=== PATIENT | female | born 1950 | race Caucasian/White ===

== ENCOUNTER 2018-01-16 11:23 | Outpatient (CLI) | payer MEDICARE, OTHER | END 2018-01-16 11:24 | disposition home or self-care (01) | LOC: BICMAMMO 11:23 | PROVIDERS: ATTEND Family Medicine | DX: Z12.31 Encounter for screening mammogram for malignant neoplasm of breast (principal); Z80.3 Family history of malignant neoplasm of breast | CPT/HCPCS: 77063; 77067 ==

== ENCOUNTER 2018-02-05 11:37 | Inpatient (IN) | payer MEDICARE, OTHER ==
[~2018-02-05 11:37] MED LIST: Iopamidol-370 76% 500 ML 1 ML ONE
[2018-02-05] MEDS ORDERED: Fentanyl 100 MCG/2 ML VIAL ONE ×4 (11:44→21:04)
[2018-02-05 12:09] LABS: #Basophils 0.1 thou/uL (0.0-0.2); #Eosinphils 0.2 thou/uL (0.0-0.7); #Lymphocytes 2.1 thou/uL (1.20-3.40); #Monocytes 0.6 thou/uL (0.11-0.59); #Neutrophils 4.8 thou/uL (1.40-6.50); %Eosinophils 2.4 % (0.0-10.0); %Lymphocytes 27.1 % (21.0-51.0); %Monocytes 7.1 % (0.0-10.0); %Neutrophils 62.3 % (42.0-75.0); Hemoglobin 11.8 g/dL (12.0-16.0); Mean Corpuscular Hemoglobin 33.3 pg (27.0-31.0); Mean Platelet Volume 9.4 fL (7.4-10.4); Platelet Count 177 thou/uL (130-400); RBC Distribution Width 11.8 % (11.5-14.5); Red Blood Cell (RBC) Count 3.55 mill/uL (4.20-5.40); White Blood Cell (WBC) Count 7.7 thou/uL (4.8-10.8)
[2018-02-05 12:13] LABS: INR-International Normal Ratio 1.3; PTT 27.8 SEC (22.9-36.1); Prothrombin Time 15.9 SEC (12.0-14.7)
[2018-02-05 12:26] LABS: ALT (SGPT) 37 U/L (8-55); AST (SGOT) 46 U/L (5-34); Albumin 3.6 g/dL (3.4-4.8); Alcohol Less than 10 mg/dL (Less than 10); Alkaline Phosphatase 149 U/L (40-150); Anion Gap 11 mmol/L (10-20); BUN (Urea Nitrogen) 10 mg/dL (9.8-20.1); Bilirubin, Total 0.3 mg/dL (0.2-1.2); Calc. Creatinine Clearance 0 mL/min (70-130); Calcium 8.4 mg/dL (7.8-10.44); Carbon Dioxide 22 mmol/L (23-31); Chloride 109 mmol/L (98-107); Estimated GFR-MDRD 73; Globulin 2.6 g/dL (2.4-3.5); Glucose 111 mg/dL (80-115); Protein, Total 6.2 g/dL (6.0-8.3); Sodium 138 mmol/L (136-145)
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
[2018-02-05] MEDS ORDERED: Adacel (T-DAP) 0.5 ML SYRINGE ONE (12:59)
[2018-02-05] MEDS ORDERED: Morphine 4 MG/ML VIAL ONE ×3 (12:59→14:56)
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
[2018-02-05] MEDS ORDERED: CEFAZOLIN 1 GM VIAL ONE ×2 (13:41→20:01)
[2018-02-05] MEDS ORDERED: Sodium Chloride 0.9% 100 ML ONE (13:41)
[2018-02-05 14:13] LABS: Bilirubin Negative (Negative); Blood, Urine Negative (Negative); Clarity CLEAR (Clear); Glucose, Urine (Dipstick) Negative (Negative); Leukocyte Small (Negative); Nitrite Negative (Negative); Protein, Urine (Dipstick) Negative (Neg-Trace); Urobilinogen 0.2 mg/dL (0.2-1.0); pH, Urine 5.5 (5.0-9.0)
[2018-02-05 14:16] LABS: Bacteria/HPF None Seen HPF (None Seen); Hyaline Casts/LPF 4-6 HYALINE CAST LPF (0-3 Hyaline); Pathc Cast-AUWi Flag 0.58 (0-2.49); RBC/HPF 0-3 HPF (0-3); Squamous Epithelial 0-3 HPF (0-3); WBC/HPF 0-3 HPF (0-3)
[2018-02-05 14:26] LABS: Specific Gravity, Urine 1.045 (1.002-1.036)
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
[2018-02-05] MEDS ORDERED: Famotidine/PF 20 mg/2ml Vial ONE (17:00)
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
[2018-02-05] MEDS ORDERED: Ondansetron HCl/PF 4 MG/2 ML Vial IVP PRN (19:56)
[2018-02-05] MEDS ORDERED: PROPOFOL 200 MG/20 ML VIAL ONE (20:01)
[2018-02-05] MEDS ORDERED: PHENYLEPHRINE-NS 100 MCG/ML 10 ML SYRINGE ONE (20:01)
[2018-02-05] MEDS ORDERED: Dexamethasone 20 MG/5 ML VIAL ONE (20:01)
[2018-02-05] MEDS ORDERED: Succinylcholine Chloride 20 MG/ML 10 ml SYRINGE FS ONE (20:01)
[2018-02-05] MEDS ORDERED: Sterile Water 10 ML VIAL ONE (20:01)
[2018-02-05] MEDS ORDERED: Lidocaine 1% PF 5 ML VIAL ONE (20:01)
[2018-02-05] MEDS ORDERED: Ondansetron PF 4 MG/2 ML Vial ONE (20:01)
[2018-02-05] MEDS ORDERED: ePHEDrine/0.9% NaCl/PF SYRINGE 50 mg/10 ml ONE (20:01)
[2018-02-05] MEDS ORDERED: Glycopyrrolate 0.2 MG/ML 5 ML SYRINGE ONE (20:01)
[2018-02-05] MEDS ORDERED: Ondansetron ODT 4 MG TAB PO PRN (21:35)
[2018-02-05] MEDS ORDERED: Dextrose 50% Abboject 50 ML SYRINGE SLOW IVP PRN (21:35)
[2018-02-05] MEDS ORDERED: Morphine 4 MG/ML VIAL SLOW IVP PRN (21:35)
[2018-02-05] MEDS ORDERED: Dextrose 5% in Water 1,000 ML IV PRN (21:35)
[2018-02-05] MEDS ORDERED: Ondansetron PF 4 MG/2 ML Vial IVP PRN (21:35)
[2018-02-05] MEDS ORDERED: hydrALAZINE 20 MG/ML VIAL SLOW IVP PRN (21:35)
[2018-02-05] MEDS ORDERED: CEFAZOLIN/Water 2 GM/20 ML SYRINGE SLOW IVP SCH (22:00)
[2018-02-05] MEDS ORDERED: diphenhydrAMINE 25 MG CAP PO PRN (22:42)
[2018-02-05] MEDS: Morphine 4 MG/ML VIAL SLOW IVP PRN (22:55)
[2018-02-05] MEDS: Acetaminophen 1,000 MG in Premix Bag 1 BAG IVPB SCH (22:56)
[2018-02-05] MEDS: Ketorolac Tromethamine 30 MG/ML VIAL IVP SCH (22:56)
[2018-02-05] MEDS: CEFAZOLIN 2 GM/50 ML BAG IVPB SCH (22:56)
[2018-02-05] MEDS: Oxazepam 10 MG CAP PO SCH (22:56)
[2018-02-05] MEDS: Sodium Chloride 0.9% 1,000 ML IV SCH (22:58)
[2018-02-05 23:57] VITALS: BMI 31.0
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
[2018-02-06] MEDS ORDERED: Nitroglycerin 0.4 MG TAB (25 Tab Bottle) SL PRN (02:34)
[2018-02-06] MEDS: Morphine 4 MG/ML VIAL SLOW IVP PRN ×3 (02:59→08:21)
[2018-02-06] MEDS: Levothyroxine Sodium 100 MCG TAB PO SCH (06:03)
[2018-02-06] MEDS: Oxazepam 10 MG CAP PO SCH ×3 (06:04→21:25)
[2018-02-06] MEDS: Ketorolac Tromethamine 30 MG/ML VIAL IVP SCH (06:06)
[2018-02-06] MEDS: CEFAZOLIN 2 GM/50 ML BAG IVPB SCH ×2 (06:07→14:14)
[2018-02-06] MEDS: Sodium Chloride 0.9% 1,000 ML IV SCH (06:07)
[2018-02-06] MEDS: Acetaminophen 1,000 MG in Premix Bag 1 BAG IVPB SCH (06:43)
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
[2018-02-06 07:59] LABS: #Eosinphils 0.1 thou/uL (0.0-0.7); #Lymphocytes 1.3 thou/uL (1.20-3.40); #Monocytes 0.6 thou/uL (0.11-0.59); %Basophils 0.7 % (0.0-1.0); %Eosinophils 1.7 % (0.0-10.0); %Lymphocytes 25.9 % (21.0-51.0); %Monocytes 11.3 % (0.0-10.0); %Neutrophils 60.3 % (42.0-75.0); Hemoglobin 10.2 g/dL (12.0-16.0); Mean Corpuscular HGB CONC 31.8 g/dL (32.0-36.0); Mean Corpuscular Hemoglobin 32.6 pg (27.0-31.0); Mean Platelet Volume 9.4 fL (7.4-10.4); Platelet Count 124 thou/uL (130-400); RBC Distribution Width 11.8 % (11.5-14.5); Red Blood Cell (RBC) Count 3.14 mill/uL (4.20-5.40); White Blood Cell (WBC) Count 4.9 thou/uL (4.8-10.8)
[2018-02-06] MEDS: Venlafaxine HCl XR 150 MG CAP PO SCH (08:22)
[2018-02-06] MEDS: Bupropion 150 MG XL TAB PO SCH (08:22)
[2018-02-06] MEDS: Cyanocobalamin (Vitamin B-12) 1,000 MCG TAB PO SCH (08:22)
[2018-02-06] MEDS: Folic Acid 1 MG TAB PO SCH (08:23)
[2018-02-06] MEDS: Famotidine 20 MG TAB PO SCH ×2 (08:23→20:24)
[2018-02-06] MEDS: Multivitamin W/ Minerals 1 TAB PO SCH (08:23)
[2018-02-06] MEDS ORDERED: HYDROcodone/Acetaminophen 5/325 mg Tablet PO PRN (08:34)
--- NOTE | 2018-02-06 08:42 | RAD ---
RIGHT KNEE TWO VIEWS: History: Patellar fracture. FINDINGS/IMPRESSION: Two spot fluoroscopic intraoperative images of the right knee demonstrate interval reduction and fixa tion of the distracted patellar fracture noted on the earlier exam of same date. POS: [facility]
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
[2018-02-06 08:56] LABS: Anion Gap 8 mmol/L (10-20); BUN (Urea Nitrogen) 8 mg/dL (9.8-20.1); Calc. Creatinine Clearance 98 mL/min (70-130); Calcium 7.8 mg/dL (7.8-10.44); Carbon Dioxide 28 mmol/L (23-31); Chloride 106 mmol/L (98-107); Estimated GFR-MDRD 73; Glucose 129 mg/dL (80-115); Potassium 4.2 mmol/L (3.5-5.1); Sodium 138 mmol/L (136-145)
[2018-02-06] MEDS ORDERED: MEMANTINE PO SCH (09:00)
[2018-02-06] MEDS ORDERED: DONEPEZIL PO SCH (09:00)
[2018-02-06] MEDS ORDERED: Aspirin 325 mg Enteric Coated Tablet PO SCH (09:00)
[2018-02-06] MEDS ORDERED: Folic Acid 1 MG TAB PO SCH (09:00)
[2018-02-06] MEDS ORDERED: Enoxaparin Sodium 40 MG/0.4 ML SYRINGE SC SCH (09:00)
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
[2018-02-06] MEDS: Primidone 50 MG TAB PO SCH (09:32)
[2018-02-06] MEDS: Liothyronine Sodium 25 MCG TAB PO SCH (09:32)
[2018-02-06] MEDS: Acetaminophen 325 MG TAB PO SCH ×3 (11:53→23:46)
[2018-02-06] MEDS ORDERED: traMADol HCl 50 MG TAB PO PRN (12:01)
[2018-02-06] MEDS: traMADol HCl 50 MG TAB PO PRN ×2 (12:26→18:13)
[2018-02-06] MEDS: Ibuprofen 600 MG TAB PO SCH ×2 (14:14→21:25)
[2018-02-06] MEDS: Pancrelipase DR 12000 1 CAP PO SCH ×2 (14:15→18:13)
[2018-02-06] MEDS: Morphine 2 MG/ML SYRINGE SLOW IVP PRN ×2 (15:07→20:18)
[2018-02-06] MEDS: Apixaban 5 MG TAB PO SCH (20:24)
[2018-02-06] MEDS: Donepezil HCl 5 MG TAB PO SCH (20:24)
[2018-02-07] MEDS: traMADol HCl 50 MG TAB PO PRN ×3 (01:50→15:50)
[2018-02-07] MEDS: Acetaminophen 325 MG TAB PO SCH ×4 (05:04→23:44)
[2018-02-07] MEDS: Ibuprofen 600 MG TAB PO SCH ×3 (05:04→21:11)
[2018-02-07] MEDS: Liothyronine Sodium 25 MCG TAB PO SCH (05:05)
[2018-02-07] MEDS: Oxazepam 10 MG CAP PO SCH ×2 (05:05→21:11)
[2018-02-07] MEDS: Levothyroxine Sodium 100 MCG TAB PO SCH (05:06)
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
[2018-02-07] MEDS ORDERED: Magnesium Citrate 300 ML BOT PO SCH (08:45)
[2018-02-07] MEDS: Apixaban 5 MG TAB PO SCH ×2 (09:08→21:11)
[2018-02-07] MEDS: Cyanocobalamin (Vitamin B-12) 1,000 MCG TAB PO SCH (09:08)
[2018-02-07] MEDS: Bupropion 150 MG XL TAB PO SCH (09:08)
[2018-02-07] MEDS: Pancrelipase DR 12000 1 CAP PO SCH ×3 (09:08→17:39)
[2018-02-07] MEDS: Multivitamin W/ Minerals 1 TAB PO SCH (09:08)
[2018-02-07] MEDS: Venlafaxine HCl XR 150 MG CAP PO SCH (09:09)
[2018-02-07] MEDS: Donepezil HCl 5 MG TAB PO SCH ×2 (09:09→21:11)
[2018-02-07] MEDS: Folic Acid 1 MG TAB PO SCH (09:09)
[2018-02-07] MEDS: Famotidine 20 MG TAB PO SCH ×2 (09:09→21:11)
[2018-02-07] MEDS: Senokot 8.6 MG TAB PO SCH (09:11)
[2018-02-07] MEDS: Primidone 50 MG TAB PO SCH (11:47)
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
[2018-02-07] MEDS: Morphine 4 MG/ML VIAL SLOW IVP PRN ×2 (12:56→21:12)
--- NOTE | 2018-02-07 12:59 | PDOC.EVN ---
Event Note - Event Note Event Note: Updated family at bedside. States grossly non compliant. Daughter RN wants to have pacer interrogated, states is usually pacer dependent and now EKG shows sinus. No cp, BP stable, no sob. CT head awaiting formal read, but negative for acute blood on my read EKG with low voltage, sinus arrhythmia but no stemi noted Updated RN Plan is rehab hope for tomorrow Only up to side of bed with PT, needs to get up further and mobilize Encouraged IS again. Have paged [employer] [phone]
--- NOTE | 2018-02-07 17:58 | EKG ---
Test Reason : Blood Pressure : / mmHG Vent. Rate : 075 BPM Atrial Rate : 075 BPM P-R Int : 140 ms QRS Dur : 084 ms QT Int : 382 ms P-R-T Axes : 091 057 062 degrees QTc Int : 426 ms Normal sinus rhythm with sinus arrhythmia Nonspecific T wave abnormality Abnormal ECG When compared with ECG of 05-FEB-2018 13:47, No significant change was found Confirmed by MADIE REAVES ([id number]) on 02/07/2018 5:58:40 PM Referred By: TRACEY Confirmed By:MADIE REAVES
[2018-02-08] MEDS: traMADol HCl 50 MG TAB PO PRN ×2 (05:13→14:21)
[2018-02-08] MEDS: Acetaminophen 325 MG TAB PO SCH ×2 (05:14→12:01)
[2018-02-08] MEDS: Ibuprofen 600 MG TAB PO SCH ×2 (05:15→14:20)
[2018-02-08] MEDS: Levothyroxine Sodium 100 MCG TAB PO SCH (05:16)
[2018-02-08] MEDS: Liothyronine Sodium 25 MCG TAB PO SCH (05:16)
[2018-02-08] MEDS: Venlafaxine HCl XR 150 MG CAP PO SCH (08:47)
[2018-02-08] MEDS: Pancrelipase DR 12000 1 CAP PO SCH ×2 (08:47→11:57)
[2018-02-08] MEDS: Bupropion 150 MG XL TAB PO SCH (08:47)
[2018-02-08] MEDS: Donepezil HCl 5 MG TAB PO SCH (08:48)
[2018-02-08] MEDS: Folic Acid 1 MG TAB PO SCH (08:48)
[2018-02-08] MEDS: Multivitamin W/ Minerals 1 TAB PO SCH (08:48)
[2018-02-08] MEDS: Cyanocobalamin (Vitamin B-12) 1,000 MCG TAB PO SCH (08:48)
[2018-02-08] MEDS: Apixaban 5 MG TAB PO SCH (08:50)
[2018-02-08] MEDS: Famotidine 20 MG TAB PO SCH (08:50)
[2018-02-08] MEDS: Oxazepam 10 MG CAP PO SCH (08:51)
[2018-02-08] MEDS: Senokot 8.6 MG TAB PO SCH (08:52)
[2018-02-08] MEDS: Primidone 50 MG TAB PO SCH (11:58)
[2018-02-08 12:07] VITALS: BP 131/65; TEMP 98.8
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
== END 2018-02-08 15:06 | DRG 510 ==
LOC: ERS 11:37 → SDC 15:41 → SURG A 20:54 → OBSVTOIN 21:35
PROVIDERS: ADMIT Orthopaedic Surgery; ATTEND Orthopaedic Surgery
PROC: 0PSL04Z Reposition Left Ulna with Internal Fixation Device, Open Approach (ICD-10-PCS; principal; 2018-02-05)
PROC: 0QSD04Z Reposition Right Patella with Internal Fixation Device, Open Approach (ICD-10-PCS; 2018-02-05)
DX: S32.018A Other fracture of first lumbar vertebra, initial encounter for closed fracture (principal); S52.022B Displaced fracture of olecranon process without intraarticular extension of left ulna, initial encounter for open fracture type I or II; S12.600A Unspecified displaced fracture of seventh cervical vertebra, initial encounter for closed fracture; S82.001B Unspecified fracture of right patella, initial encounter for open fracture type I or II; V49.59XA Passenger injured in collision with other motor vehicles in traffic accident, initial encounter; Z88.5 Allergy status to narcotic agent; Z91.040 Latex allergy status; Z86.718 Personal history of other venous thrombosis and embolism; M06.9 Rheumatoid arthritis, unspecified; G20 Parkinson's disease; I25.10 Atherosclerotic heart disease of native coronary artery without angina pectoris; I25.2 Old myocardial infarction; E03.9 Hypothyroidism, unspecified; E78.5 Hyperlipidemia, unspecified; I10 Essential (primary) hypertension; F32.9 Major depressive disorder, single episode, unspecified; F41.9 Anxiety disorder, unspecified; Z95.0 Presence of cardiac pacemaker; Z95.1 Presence of aortocoronary bypass graft; S06.0X0A Concussion without loss of consciousness, initial encounter; V49.40XA Driver injured in collision with unspecified motor vehicles in traffic accident, initial encounter; Z95.5 Presence of coronary angioplasty implant and graft; Z98.84 Bariatric surgery status
CPT/HCPCS: 36415; 36416; 51702; 70450; 71045; 71260; 72125; 72170; 74177; 76001; 80048; 80053; 80307; 81003; 81015; 82150; 83605; 85025; 85730; 90471; 90715; 93005; 93010; 96365; 96375; 96376; A4216; C1713; C1769; G0390; G8978-GP-CM; G8979-GP-CK; G8987-GO-CN; G8988-GO-CK; J0131; J0690; J1100; J1650; J1885; J2001; J2270; J2405; J2704; J3010; J7050; Q9967; S0028

== ENCOUNTER 2018-02-14 15:08 | Outpatient (CLI) | payer MEDICARE, OTHER ==
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
== END 2018-02-14 15:09 | disposition home or self-care (01) ==
LOC: RAD 15:08
PROVIDERS: ATTEND Internal Medicine
DX: S29.9XXA Unspecified injury of thorax, initial encounter (principal)
CPT/HCPCS: 71120

== ENCOUNTER 2018-03-17 20:14 | Emergency (ER) | payer MEDICARE, OTHER ==
[2018-03-17 21:28] LABS: #Basophils 0.1 thou/uL (0.0-0.2); #Eosinphils 0.3 thou/uL (0.0-0.7); #Lymphocytes 1.5 thou/uL (1.20-3.40); #Monocytes 0.7 thou/uL (0.11-0.59); #Neutrophils 3.1 thou/uL (1.40-6.50); %Eosinophils 4.6 % (0.0-10.0); %Lymphocytes 26.6 % (21.0-51.0); %Monocytes 12.3 % (0.0-10.0); %Neutrophils 55.5 % (42.0-75.0); Hemoglobin 11.7 g/dL (12.0-16.0); Mean Corpuscular HGB CONC 32.2 g/dL (32.0-36.0); Mean Corpuscular Hemoglobin 32.7 pg (27.0-31.0); Mean Platelet Volume 8.5 fL (7.4-10.4); Platelet Count 214 thou/uL (130-400); RBC Distribution Width 11.3 % (11.5-14.5); Red Blood Cell (RBC) Count 3.58 mill/uL (4.20-5.40); White Blood Cell (WBC) Count 5.6 thou/uL (4.8-10.8)
[2018-03-17 21:42] LABS: ALT (SGPT) 37 U/L (8-55); AST (SGOT) 38 U/L (5-34); Albumin 3.7 g/dL (3.4-4.8); Alkaline Phosphatase 215 U/L (40-150); Anion Gap 12 mmol/L (10-20); BUN (Urea Nitrogen) 14 mg/dL (9.8-20.1); Bilirubin, Total 0.2 mg/dL (0.2-1.2); Calc. Creatinine Clearance 0 mL/min (70-130); Calcium 9.1 mg/dL (7.8-10.44); Carbon Dioxide 24 mmol/L (23-31); Chloride 103 mmol/L (98-107); Estimated GFR-MDRD 71; Globulin 3.4 g/dL (2.4-3.5); Glucose 60 mg/dL (80-115); Potassium 3.8 mmol/L (3.5-5.1); Protein, Total 7.1 g/dL (6.0-8.3); Sodium 135 mmol/L (136-145)
--- NOTE | 2018-03-17 22:06 | RAD ---
LEFT ELBOW TWO VIEWS: 03/17/18 HISTORY: Left elbow pain. FINDINGS: Internal fixation of the proximal ulna and olecranon. Healing fracture of the proximal ulnar shaft. R adiocapitellar alignment maintained. No fluid distention of the joint capsule. Mild osteophytosis. IMPRESSION: Internal fixation of the left proximal ulna with healing fracture apparent. No acute osseous abnormal ities are demonstrated. POS: [facility]
--- NOTE | 2018-03-17 23:32 | ULT ---
VENOUS DUPLEX SONOGRAM LEFT UPPER EXTREMITY: 03/17/18 HISTORY: Left arm pain and edema. FINDINGS: The visualized portions of the left subclavian vein and the axillary, brachial, cephalic, and basilic veins show good color and spectral doppler flow and compression. Internal jugular vein was unable t o be evaluated due to the neck brace. IMPRESSION: No sonographic evidence of DVT within the left upper extremity. POS: [facility]
== END 2018-03-18 00:34 ==
LOC: ERS 20:14
DX: M79.89 Other specified soft tissue disorders (principal); Z86.718 Personal history of other venous thrombosis and embolism; I25.10 Atherosclerotic heart disease of native coronary artery without angina pectoris; I25.2 Old myocardial infarction; E03.9 Hypothyroidism, unspecified; E78.5 Hyperlipidemia, unspecified; I10 Essential (primary) hypertension; G20 Parkinson's disease; F41.9 Anxiety disorder, unspecified; F32.9 Major depressive disorder, single episode, unspecified; Z79.899 Other long term (current) drug therapy; Z79.01 Long term (current) use of anticoagulants
CPT/HCPCS: 36415; 80053; 85025; 87040; 94760

== ENCOUNTER 2018-03-22 09:32 | Day surgery (SDC) | payer MEDICARE, OTHER ==
[2018-03-22] MEDS ORDERED: CEFAZOLIN 2 GM/50 ML BAG ONE (12:18)
[2018-03-22 12:35] LABS: INR-International Normal Ratio 1.4; PTT 32.3 SEC (22.9-36.1); Prothrombin Time 17.3 SEC (12.0-14.7)
[2018-03-22] MEDS ORDERED: Fentanyl 100 MCG/2 ML VIAL ONE ×3 (13:25→15:49)
[2018-03-22] MEDS ORDERED: Bupivacaine HCl 0.5%/Epinephrine 1:200,000/PF 30 ml Vial ONE (15:04)
[2018-03-22] MEDS ORDERED: Ondansetron PF 4 MG/2 ML Vial ONE (16:55)
[2018-03-22] MEDS ORDERED: PROPOFOL 200 MG/20 ML VIAL ONE (16:55)
[2018-03-22] MEDS ORDERED: Lidocaine 1% PF 5 ML VIAL ONE (16:55)
--- NOTE | 2018-03-22 17:10 | EKG ---
Test Reason : PREOP Blood Pressure : / mmHG Vent. Rate : 068 BPM Atrial Rate : 068 BPM P-R Int : 160 ms QRS Dur : 082 ms QT Int : 442 ms P-R-T Axes : 079 046 045 degrees QTc Int : 469 ms Sinus rhythm with Premature atrial complexes Otherwise normal ECG When compared with ECG of 07-FEB-2018 10:44, Premature atrial complexes are now Present Confirmed by VERÓNICA GARCIA, SDahlia ([id number]) on 03/22/2018 5:10:14 PM Referred By: JUVENTINO Confirmed By:DR. Rose SANCHES MD
[2018-03-22] MEDS ORDERED: HYDROcodone/Acetaminophen 5/325 mg Tablet ONE (18:01)
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
--- NOTE | 2018-03-23 08:20 | RAD ---
RIGHT KNEE 3 VIEWS: INDICATION: Intraoperative imaging in OR during hardware removal procedure. FINDINGS: These 3 views show screws and wires transfixing the patella. POS: OFF
== END 2018-03-22 20:30 | disposition home or self-care (01) ==
LOC: SDC 09:32
PROVIDERS: ATTEND Orthopaedic Surgery
PROC: 0QSD04Z Reposition Right Patella with Internal Fixation Device, Open Approach (ICD-10-PCS; principal; 2018-03-22)
DX: S82.001K Unspecified fracture of right patella, subsequent encounter for closed fracture with nonunion (principal); S52.232D Displaced oblique fracture of shaft of left ulna, subsequent encounter for closed fracture with routine healing; F32.9 Major depressive disorder, single episode, unspecified; F41.9 Anxiety disorder, unspecified; I10 Essential (primary) hypertension; I25.10 Atherosclerotic heart disease of native coronary artery without angina pectoris; E03.9 Hypothyroidism, unspecified; E78.5 Hyperlipidemia, unspecified; I25.2 Old myocardial infarction; Z79.01 Long term (current) use of anticoagulants; Z79.899 Other long term (current) drug therapy; Z88.8 Allergy status to other drugs, medicaments and biological substances; Z91.040 Latex allergy status; Z98.890 Other specified postprocedural states; V89.2XXD Person injured in unspecified motor-vehicle accident, traffic, subsequent encounter
CPT/HCPCS: 27524; 73564; 76000; 85610; 85730; 87070; 87075; 87205; 93005; C1713; C1769; 93010; J0670; J2001; J2405; J2704; J3010

== ENCOUNTER 2018-04-02 15:05 | Emergency (ER) | payer MEDICARE, OTHER ==
[2018-04-02] MEDS ORDERED: Cyclobenzaprine 10 MG TAB ONE (18:03)
[2018-04-02] MEDS ORDERED: Ketorolac Tromethamine 30 MG/ML VIAL ONE (18:03)
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
== END 2018-04-02 19:07 | disposition home or self-care (01) ==
LOC: ERS 15:05
DX: S16.1XXA Strain of muscle, fascia and tendon at neck level, initial encounter (principal); Z86.718 Personal history of other venous thrombosis and embolism; I25.10 Atherosclerotic heart disease of native coronary artery without angina pectoris; I25.2 Old myocardial infarction; E03.9 Hypothyroidism, unspecified; E78.5 Hyperlipidemia, unspecified; G20 Parkinson's disease; F41.9 Anxiety disorder, unspecified; F32.9 Major depressive disorder, single episode, unspecified; W22.8XXA Striking against or struck by other objects, initial encounter
CPT/HCPCS: 72125; 96372; J1885

== ENCOUNTER 2018-04-17 14:11 | Outpatient (CLI) | payer MEDICARE, OTHER ==
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
== END 2018-04-17 14:12 | disposition home or self-care (01) ==
LOC: TBSIIMAG 14:11
PROVIDERS: ATTEND Neurological Surgery
DX: S12.600D Unspecified displaced fracture of seventh cervical vertebra, subsequent encounter for fracture with routine healing (principal); M47.812 Spondylosis without myelopathy or radiculopathy, cervical region
CPT/HCPCS: 72040

== ENCOUNTER 2018-05-22 10:38 | Day surgery (SDC) | payer MEDICARE, OTHER ==
[2018-05-21 16:59] VITALS: BMI 29.7
[2018-05-22 11:30] LABS: Hemoglobin 12.7 g/dL (12.0-16.0); Mean Corpuscular HGB CONC 33.3 g/dL (32.0-36.0); Mean Corpuscular Hemoglobin 31.4 pg (27.0-31.0); Mean Corpuscular Volume 94.1 fL (78.0-98.0); Mean Platelet Volume 8.9 fL (7.4-10.4); Platelet Count 170 thou/uL (130-400); RBC Distribution Width 12.1 % (11.5-14.5); Red Blood Cell (RBC) Count 4.04 mill/uL (4.20-5.40); White Blood Cell (WBC) Count 5.2 thou/uL (4.8-10.8)
[2018-05-22 11:47] LABS: Eosinophils 4 % (0-10); Lymphocytes 32 % (21-51); MDiff Complete? YES; Monocytes 9 % (0-10); Neutrophil 53 % (42-75); Platelet Morphology Comment Appears Adequate; RBC Morphology Normal; Reactive Lymphocytes 2 % (0-10)
[2018-05-22 11:50] LABS: Anion Gap 10 mmol/L (10-20); BUN (Urea Nitrogen) 13 mg/dL (9.8-20.1); Calc. Creatinine Clearance 103 mL/min (70-130); Calcium 9.3 mg/dL (7.8-10.44); Carbon Dioxide 26 mmol/L (23-31); Chloride 107 mmol/L (98-107); Estimated GFR-MDRD 82; Glucose 82 mg/dL (80-115); Potassium 3.8 mmol/L (3.5-5.1); Sodium 139 mmol/L (136-145)
[2018-05-22] MEDS ORDERED: Bupivacaine HCl 0.5%/Epinephrine 1:200,000/PF 30 ml Vial ONE (12:09)
[2018-05-22] MEDS ORDERED: Midazolam HCl 2 mg/2 ml Vial ONE (12:11)
[2018-05-22] MEDS ORDERED: Fentanyl 100 MCG/2 ML VIAL ONE (12:11)
--- NOTE | 2018-05-22 21:23 | EKG ---
Test Reason : PREOP Blood Pressure : / mmHG Vent. Rate : 085 BPM Atrial Rate : 085 BPM P-R Int : 160 ms QRS Dur : 082 ms QT Int : 396 ms P-R-T Axes : 065 050 058 degrees QTc Int : 471 ms [employer] Electronic atrial pacemaker Confirmed by VERÓNICA GARCIA, DR. Rose ([id number]) on 05/22/2018 9:23:24 PM Referred By: JUNIOR Confirmed By:DR. Rose SANCHES MD
--- NOTE | 2018-05-23 00:56 | OP ---
DATE OF PROCEDURE: 05/22/2018 PREOPERATIVE DIAGNOSIS: Painful hardware, upper sternum. POSTOPERATIVE DIAGNOSIS: Painful hardware, upper sternum. PROCEDURE PERFORMED: Partial removal of sternal wire. ANESTHESIA: 0.5% Marcaine with epinephrine plus IV sedation. DESCRIPTION OF PROCEDURE: After prepping and draping and sedation had been obtained, Marcaine was infiltrated into the upper sternal incision including on top of the sternum. Incision was made and carried down to the exposed wire. The wire was pointed directly upwards with untwisted and then the wires individually were amputated against the sternum, leaving no exposed wire. Wound was closed in layers. The patient tolerated the procedure. Job ID: [id number]
== END 2018-05-22 14:00 | disposition home or self-care (01) ==
LOC: SDC 10:38
PROVIDERS: ATTEND Thoracic Surgery (Cardiothoracic Vascular Surgery)
PROC: 0PC00ZZ Extirpation of Matter from Sternum, Open Approach (ICD-10-PCS; principal; 2018-05-22)
DX: T84.84XA Pain due to internal orthopedic prosthetic devices, implants and grafts, initial encounter (principal); E03.9 Hypothyroidism, unspecified; K21.9 Gastro-esophageal reflux disease without esophagitis; D64.9 Anemia, unspecified; M47.9 Spondylosis, unspecified; I25.10 Atherosclerotic heart disease of native coronary artery without angina pectoris; I48.0 Paroxysmal atrial fibrillation; Z88.8 Allergy status to other drugs, medicaments and biological substances; Z91.048 Other nonmedicinal substance allergy status
CPT/HCPCS: 80048; 85007; 85027; 93005; 93010; J0670; J2250; J3010

== ENCOUNTER 2018-09-12 11:51 | Outpatient (CLI) | payer MEDICARE, OTHER ==
[2018-09-12 13:26] LABS: #Basophils 0.1 thou/uL (0.0-0.2); #Eosinphils 0.2 thou/uL (0.0-0.7); #Monocytes 0.6 thou/uL (0.11-0.59); #Neutrophils 2.8 thou/uL (1.40-6.50); %Basophils 1.3 % (0.0-1.0); %Eosinophils 3.5 % (0.0-10.0); %Lymphocytes 35.3 % (21.0-51.0); %Monocytes 10.7 % (0.0-10.0); %Neutrophils 49.2 % (42.0-75.0); Hemoglobin 12.8 g/dL (12.0-16.0); Mean Corpuscular HGB CONC 33.4 g/dL (32.0-36.0); Mean Corpuscular Hemoglobin 33.9 pg (27.0-31.0); Mean Platelet Volume 8.9 fL (7.4-10.4); Platelet Count 159 thou/uL (130-400); RBC Distribution Width 12.6 % (11.5-14.5); Red Blood Cell (RBC) Count 3.79 mill/uL (4.20-5.40); White Blood Cell (WBC) Count 5.6 thou/uL (4.8-10.8)
[2018-09-12 13:33] LABS: Bilirubin Negative (Negative); Blood, Urine Negative (Negative); Clarity Clear (Clear); Glucose, Urine (Dipstick) Normal (Negative); Leukocyte Negative Leu/uL (Negative); Nitrite Negative (Negative); Protein, Urine (Dipstick) Negative (Neg-Trace); RBC/HPF 0-3 HPF (0-3); Squamous Epithelial 0-3 HPF (0-3); Urobilinogen Normal mg/dL (Less than 2); WBC/HPF 0-3 HPF (0-3)
[2018-09-12 13:43] LABS: Bacteria/HPF None Seen HPF (None Seen)
== END 2018-09-12 11:52 | disposition home or self-care (01) ==
LOC: LABBT 11:51
PROVIDERS: ATTEND Orthopaedic Surgery Hand Surgery
DX: Z01.818 Encounter for other preprocedural examination (principal); G56.22 Lesion of ulnar nerve, left upper limb
CPT/HCPCS: 81001; 85025; 93005; 93010

== ENCOUNTER 2018-09-18 08:56 | Observation (INO) | payer MEDICARE, OTHER ==
[2018-09-12 12:33] VITALS: BMI 29.7
[2018-09-18] MEDS ORDERED: ceFAZolin Sodium (SDC) 2 GM/100 ML BAG ONE (14:53)
[2018-09-18] MEDS ORDERED: Midazolam HCl 2 mg/2 ml Vial ONE (14:53)
[2018-09-18] MEDS ORDERED: Betamet Acet/Betamet Na Ph 30 MG/5 ML VIAL ONE (15:24)
[2018-09-18] MEDS ORDERED: Bupivacaine PF 0.5% 30 ML VIAL ONE (15:24)
[2018-09-18] MEDS ORDERED: Bacitracin Zinc Ointment 30 gm TUBE ONE (15:25)
[2018-09-18] MEDS ORDERED: Metoprolol Tartrate 5 MG/5 ML VIAL ONE (15:38)
[2018-09-18] MEDS ORDERED: Ondansetron PF 4 MG/2 ML Vial ONE (15:38)
[2018-09-18] MEDS ORDERED: Lidocaine 1% PF 5 ML VIAL ONE (15:38)
[2018-09-18] MEDS ORDERED: PROPOFOL 200 MG/20 ML VIAL ONE (15:38)
[2018-09-18] MEDS ORDERED: Fentanyl 100 MCG/2 ML VIAL ONE ×2 (15:39→18:23)
[2018-09-18] MEDS ORDERED: Ketorolac Tromethamine 30 MG/ML VIAL ONE (18:23)
[2018-09-18] MEDS ORDERED: Ondansetron PF 4 MG/2 ML Vial IV PRN (18:30)
[2018-09-18] MEDS ORDERED: Acetaminophen 325 MG TAB PO PRN (18:30)
[2018-09-18] MEDS ORDERED: Morphine 2 MG/ML SYRINGE IVP PRN (18:30)
[2018-09-18] MEDS ORDERED: Promethazine HCl 25 MG/ML VIAL IM PRN (18:30)
[2018-09-18] MEDS ORDERED: traMADol HCl 50 MG TAB PO PRN (18:30)
[2018-09-18] MEDS ORDERED: HYDROcodone/Acetaminophen 5/325 mg Tablet PO PRN (18:30)
[2018-09-18] MEDS ORDERED: Communication Order-Pharmacy FS SCH (18:30)
[2018-09-18] MEDS ORDERED: Non-Formulary Medication 1 EACH PO PRN (18:42)
[2018-09-18] MEDS ORDERED: Promethazine HCl 25 MG/ML VIAL IM/IV PRN (18:42)
[2018-09-18] MEDS ORDERED: Ondansetron HCl/PF 4 MG/2 ML Vial IVP PRN (18:42)
[2018-09-18] MEDS ORDERED: Nitroglycerin 0.4 MG TAB (25 Tab Bottle) SL PRN (20:35)
[2018-09-18] MEDS ORDERED: Propranolol HCl LA 60 MG CAP PO SCH (21:00)
[2018-09-18] MEDS ORDERED: VANCOMYCIN HCL IVPB SCH (21:00)
[2018-09-18] MEDS ORDERED: lamoTRIgine 100 MG TAB PO SCH (21:00)
[2018-09-18] MEDS: Donepezil HCl 5 MG TAB PO SCH (21:14)
[2018-09-18] MEDS: Aspirin 81 mg Enteric Coated Tablet PO SCH (21:15)
[2018-09-18] MEDS: Vancomycin HCl 1.25 GM in Sodium Chloride 0.9% 250 ML 250 ML IVPB SCH (21:17)
[2018-09-18] MEDS: Acetaminophen/Codeine 30-300mg Tablet PO PRN (21:25)
[2018-09-18] MEDS ORDERED: TETANUS AND DIPHTHERIA TOX/PF 0.5 ML DISP.SYRIN IM SCH (23:00)
[2018-09-18] MEDS: Ketorolac Tromethamine 30 MG/ML VIAL IVP SCH (23:28)
[2018-09-19] MEDS: Ketorolac Tromethamine 30 MG/ML VIAL IVP SCH (05:16)
[2018-09-19] MEDS ORDERED: Levothyroxine Sodium 100 MCG TAB PO SCH (06:00)
[2018-09-19] MEDS ORDERED: Pancrelipase DR 12000 1 CAP PO SCH (08:00)
[2018-09-19] MEDS: Donepezil HCl 5 MG TAB PO SCH (08:25)
[2018-09-19] MEDS: Aspirin 81 mg Enteric Coated Tablet PO SCH (08:27)
[2018-09-19] MEDS: Acetaminophen/Codeine 30-300mg Tablet PO PRN (08:28)
[2018-09-19] MEDS ORDERED: Primidone 50 MG TAB PO SCH ×2 (09:00)
[2018-09-19] MEDS ORDERED: Cyanocobalamin (Vitamin B-12) 1,000 MCG TAB PO SCH (09:00)
[2018-09-19] MEDS ORDERED: Multivitamin W/ Minerals 1 TAB PO SCH (09:00)
[2018-09-19] MEDS ORDERED: Thiamine 100 MG TAB PO SCH (09:00)
[2018-09-19] MEDS ORDERED: Venlafaxine HCl XR 150 MG CAP PO SCH (09:00)
[2018-09-19] MEDS ORDERED: Liothyronine Sodium 25 MCG TAB PO SCH (09:00)
[2018-09-19] MEDS ORDERED: Bupropion 150 MG XL TAB PO SCH (09:00)
[2018-09-19] MEDS: Vancomycin HCl 1.25 GM in Sodium Chloride 0.9% 250 ML 250 ML IVPB SCH (09:17)
[2018-09-19 10:54] VITALS: BP 145/74; TEMP 99
--- NOTE | 2018-09-19 12:39 | OP ---
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 POSTOPERATIVE DIAGNOSES: 1. 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 2. Olecranon bursitis. PROCEDURES PERFORMED: 1. Radical olecranon bursectomy. 2. Ulnar nerve transposition, submuscular, with ulnar nerve neuroplasty at the elbow region, centered on the elbow. FINDINGS: She had two areas of extreme fascial soft tissue constriction, one at the inlet to the cubital tunnel and the other approximately 3 cm proximal where the intermuscular septum crossed over extremely tight. ESTIMATED BLOOD LOSS: 10 mL. TOURNIQUET TIME: 83 minutes. INJECTABLE: Yes, 30 mL of 0.5% Marcaine with 20 given before the procedure on the incision and 10 given afterwards. DESCRIPTION OF PROCEDURE: After successful general endotracheal anesthesia, the limb was prepped and draped. Time-out done appropriately. Sterile tourniquet was applied high in the arm and the patient then underwent exsanguination of the limb. Her previous incision was utilized in the distal two-thirds of the incision and proximal one-third, was also midline, slightly medialized at the proximal aspect. We then carried the incision through skin and subcutaneous tissue. We noticed very thick olecranon bursa. We then began proximally identifying the ulnar nerve and at the point where it overly the intermuscular septum, a portion was coursed almost 34 degrees ulnar/medially shifted. We released this with neuroplasty. We then followed with neuroplasty from here until we reached the end to the primary cubital tunnel and here also, the ulnar nerve was flat to the point where it was almost 50% diameter decrease. We performed release of the cubital tunnel primary ligament, the fascia over the flexor pronator origin identifying the nerve branch of flexor carpi radialis and ulnaris and sparing them. We carried this at least 8 cm distal to the elbow. The ulnar nerve was free further without any compression. Reconstitution of the nerve by the time we finished the procedure was in progress. We now made sure the nerve was free from proximal to distal, so it could be transposed and we did this with bone dissection. We used DeBakey forceps for contact with the perineural fascial elements. We then realized that this intermuscular septum was one of the large components of compression, that the intermuscular septum must be resected, so a nearly 8 mm wide band of the intermuscular septum was released and removed beginning at the medial epicondyle and coursing 2 cm proximal to where the compression had been over the ulnar nerve. At this point, we made a Z incision in the flexor pronator origin, sparing the collateral, making sure there was no muscular tension and then placed the ulnar nerve gently underneath this bringing with it a vascular bundle. Then, we placed Celestone over the nerve elements within the canal including the two spots that had the compression, and we repaired the lengthened flexor pronator group in a Z-plasty relaxing fashion using an interrupted #2 Ethibond, OS4 needle in a [id number] pattern. No instability was seen and the nerve was markedly free without tension. The tourniquet deflated and hemostasis obtained. We closed the wound with interrupted 3-0 Monocryl subcutaneous dermal deep and used Steri-Strips for the skin. Before we closed the wound, we did perform a radical olecranon bursectomy without exposing any hardware. She was placed in a long-arm splint at approximately 70 degrees (20 degrees short of 90 degree position) relaxing the nerve repair and then had excellent capillary refill leaving the operating room without evidence of anesthetic or operative complication. Job ID: [id number]
== END 2018-09-19 12:23 | disposition home or self-care (01) ==
LOC: SDC 08:56 → SURG A 18:35
PROVIDERS: ADMIT Orthopaedic Surgery Hand Surgery; ATTEND Orthopaedic Surgery Hand Surgery
PROC: 0MT40ZZ Resection of Left Elbow Bursa and Ligament, Open Approach (ICD-10-PCS; principal; 2018-09-18)
PROC: 01N40ZZ Release Ulnar Nerve, Open Approach (ICD-10-PCS; 2018-09-18)
DX: G56.22 Lesion of ulnar nerve, left upper limb (principal); M70.22 Olecranon bursitis, left elbow; M19.041 Primary osteoarthritis, right hand; M19.042 Primary osteoarthritis, left hand; D64.9 Anemia, unspecified; E16.2 Hypoglycemia, unspecified; F32.9 Major depressive disorder, single episode, unspecified; F41.9 Anxiety disorder, unspecified; I25.10 Atherosclerotic heart disease of native coronary artery without angina pectoris; E03.9 Hypothyroidism, unspecified; E78.5 Hyperlipidemia, unspecified; Z79.899 Other long term (current) drug therapy; Z88.5 Allergy status to narcotic agent; Z91.030 Bee allergy status; Z91.040 Latex allergy status
CPT/HCPCS: 24105; 82962 ×2; 88305; 96365; 96366 ×2; 96375; 96376; G0378 ×2; 36416; J0690; J0702; J1885; J2001; J2250; J2270; J2405; J2704; J3010; J3370; J7050; S0020

== ENCOUNTER 2019-01-25 13:17 | Outpatient (CLI) | payer MEDICARE, OTHER ==
--- NOTE | 2019-01-25 14:21 | BD ---
BONE DENSITOMETRY USING DEXA: HISTORY: Age related osteoporosis without current pathological fracture. Screening for postmenopausal osteopor osis. FINDINGS: LUMBAR SPINE BMD (g/cm2) T-SCORE Z-SCORE L1 0.814 -1.6 0.2 L2 1.017 -0.1 1.9 L3 1.211 1.2 0.3 L4 1.132 0.6 2.9 TOTAL 1.050 0.0 2.1 BMD (g/cm2) T-SCORE Z-SCORE NECK 0.727 -1.1 0.7 TOTAL 0.903 -0.3 1.2 IMPRESSION: Osteopenia. POS: [facility]
--- NOTE | 2019-01-25 16:23 | MMO ---
Bilateral MAMMO Bilat Screen [facility]. CLINICAL HISTORY: Patient is 68 years old and is seen for screening. The patient has the following family history of breast cancer: maternal grandmother, at age 50, malignant (generic). The patient has no personal history of cancer. VIEWS: The views performed were: bilateral craniocaudal with tomosynthesis; bilateral mediolateral oblique with tomosynthesis; and right mediolateral oblique. FILMS COMPARED: The present examination has been compared to prior imaging studies performed at [facility] on 06/25/2014, 12/08/2015, 01/03/2017 and 01/16/2018. This study has been interpreted with the assistance of computer-aided detection. MAMMOGRAM FINDINGS: There are scattered fibroglandular densities. There are stable benign appearing calcifications seen in both breasts. There are no suspicious masses, suspicious calcifications, or new areas of architectural distortion. IMPRESSION: THERE IS NO MAMMOGRAPHIC EVIDENCE OF MALIGNANCY. A ROUTINE FOLLOW-UP MAMMOGRAM IN 1 YEAR IS RECOMMENDED. THE RESULTS OF THIS EXAM WERE SENT TO THE PATIENT. ACR BI-RADS Category 2 - Benign finding MAMMOGRAPHY NOTE: 1. A negative mammogram report should not delay a biopsy if a dominant of clinically suspicious mass is present. 2. Approximately 10% to 15% of breast cancers are not detected by mammography. 3. Adenosis and dense breasts may obscure an underlying neoplasm. Reported by: CHRISTY MAYES MD Electonically Signed: [id number]
== END 2019-01-25 13:18 | disposition home or self-care (01) ==
LOC: BICMAMMO 13:17
PROVIDERS: ATTEND Family Medicine
DX: Z12.31 Encounter for screening mammogram for malignant neoplasm of breast (principal); M81.0 Age-related osteoporosis without current pathological fracture; M85.89 Other specified disorders of bone density and structure, multiple sites; Z80.3 Family history of malignant neoplasm of breast
CPT/HCPCS: 77063; 77067; 77080

== ENCOUNTER 2019-03-06 15:38 | Emergency (ER) | payer MEDICARE, OTHER ==
[2019-03-06 16:06] LABS: INR-International Normal Ratio 1.1; PTT 23.8 SEC (22.9-36.1); Prothrombin Time 14.2 SEC (12.0-14.7)
--- NOTE | 2019-03-06 16:22 | ULT ---
EXAM: Left lower extremity venous Doppler US HISTORY: left lower extremity pain FINDINGS: Grayscale, color-flow, Doppler evaluation, spectral analysis of the left lower extremity venous struc tures is performed with 2-D imaging. The left common femoral, superficial femoral, popliteal, posterior tibial, proximal greater saphenous and profunda femoral veins are imaged. There is normal luminal compressibility, flow, and augmentation the visualized deep venous structures of the left lower extremity. IMPRESSION: No evidence of a deep vein thrombosis in the left lower extremity.
== END 2019-03-06 18:31 | disposition home or self-care (01) ==
LOC: ERS 15:38
DX: M79.605 Pain in left leg (principal); I25.2 Old myocardial infarction; M06.9 Rheumatoid arthritis, unspecified; G20 Parkinson's disease; F41.9 Anxiety disorder, unspecified; F32.9 Major depressive disorder, single episode, unspecified
CPT/HCPCS: 36415; 85610; 85730

== ENCOUNTER 2020-02-19 10:19 | Outpatient (CLI) | payer MEDICARE, OTHER ==
--- NOTE | 2020-02-19 11:28 | MMO ---
Bilateral MAMMO Bilat Screen [facility]. CLINICAL HISTORY: Patient is 69 years old and is seen for screening. The patient has the following family history of breast cancer: maternal grandmother, at age 50, malignant (generic). The patient has no personal history of cancer. The patient has a history of left Excisional Biopsy more than 10 years ago - benign. VIEWS: The views performed were: bilateral craniocaudal with tomosynthesis and bilateral mediolateral oblique with tomosynthesis. FILMS COMPARED: The present examination has been compared to prior imaging studies performed at [facility] on 12/08/2015, 01/03/2017, 01/16/2018 and 01/25/2019. This study has been interpreted with the assistance of computer-aided detection. MAMMOGRAM FINDINGS: There are stable benign appearing calcifications seen in both breasts. There are no suspicious masses, suspicious calcifications, or new areas of architectural distortion. IMPRESSION: THERE IS NO MAMMOGRAPHIC EVIDENCE OF MALIGNANCY. A ROUTINE FOLLOW-UP MAMMOGRAM IN 1 YEAR IS RECOMMENDED. THE RESULTS OF THIS EXAM WERE SENT TO THE PATIENT. ACR BI-RADS Category 2 - Benign finding MAMMOGRAPHY NOTE: 1. A negative mammogram report should not delay a biopsy if a dominant of clinically suspicious mass is present. 2. Approximately 10% to 15% of breast cancers are not detected by mammography. 3. Adenosis and dense breasts may obscure an underlying neoplasm. Reported by: SALOME BURRELL MD Electonically Signed: [id number]
== END 2020-02-19 10:20 | disposition home or self-care (01) ==
LOC: BICMAMMO 10:19
PROVIDERS: ATTEND Family Medicine
DX: Z12.31 Encounter for screening mammogram for malignant neoplasm of breast (principal); Z91.89 Other specified personal risk factors, not elsewhere classified; Z80.3 Family history of malignant neoplasm of breast
CPT/HCPCS: 77063; 77067

== ENCOUNTER 2021-08-04 11:03 | Outpatient (CLI) | payer MEDICARE, OTHER | END 2021-08-04 11:04 | disposition home or self-care (01) | LOC: BICRAD 11:03 | PROVIDERS: ATTEND Specialist | DX: M51.16 Intervertebral disc disorders with radiculopathy, lumbar region (principal); M47.26 Other spondylosis with radiculopathy, lumbar region; M47.817 Spondylosis without myelopathy or radiculopathy, lumbosacral region | CPT/HCPCS: 72110 ==

== ENCOUNTER 2021-08-10 12:36 | Outpatient (CLI) | payer MEDICARE, OTHER | END 2021-08-10 12:37 | disposition home or self-care (01) | LOC: BICCT 12:36 | PROVIDERS: ATTEND Specialist | DX: M51.16 Intervertebral disc disorders with radiculopathy, lumbar region (principal); M47.26 Other spondylosis with radiculopathy, lumbar region | CPT/HCPCS: 72131 ==